=== PATIENT | female | born 1990 | race Caucasian/White ===

== ENCOUNTER 2017-01-09 01:17 | Inpatient (IN) | payer MEDICAID ==
[~2017-01-09] VITALS: Ht 180.3 cm; Wt 113.9 kg
[~2017-01-09 01:17] MED LIST: AUGMENTIN XR 101 TER PO; GABAPENTIN 400400 MG PO; METHADONE HCL5 MG PO; PHENERGAN25 M3 PO; PRENATAL PLUS1 TA1 PO; SEPTRA DS 800 M1 TAB PO; TYLENOL W/CODEI1 TA2 PO; TYLENOL325 MG PO; VOLTAREN75 M1 PO
[2017-01-09 05:59] VITALS: BP 120/75
[2017-01-09 06:30] LABS: HEMOGLOBIN 12.6 g/dL (12.2-16.2); LYMPH # 2.2 K/mm3 (0.7-4.5); LYMPH % 23.3 % (10-50.0)
[2017-01-09 07:14] LABS: ABO BLOOD TYPE O; RH BLOOD TYPE POSITIVE
[2017-01-09 07:45] LABS: URINE BLOOD NEGATIVE (NEG)
[2017-01-09 07:52] LABS: URINE BILIRUBIN - DIPSTICK NEGATIVE (NEG)
[2017-01-09 07:55] LABS: AMPHETAMINES/METAMPHETAMINES NEGATIVE ng/mL (<1000)
--- NOTE | 2017-01-09 08:29 | Operative Note ---
Procedure/Operative Record Procedure Date of procedure: 01/09/17 Pre-Op Dx: Term , previous section Post-Op Dx: Term , previous section Procedure performed: Repeat lower segment transverse section Surgeon: Dr. Lazaro Fulton Heat Treater Apprentice(s): Kamila Alcazar Anesthesia: Taye Acosta EBL (ml): 600 Clinical note: She is a 26-year-old 3 para 1 aborta 1 who was 39 and 6 weeks gestational age. She's had a previous section and as result of that was offered repeat lower segment transverse section at term. Surgery discussed the patient prior surgery. Operative findings: She delivered a live-born male child at 8:00 on the morning of January 09, 2017. The baby had Apgars of 9 at 1 minute and 10 at 5 minutes. Ovaries and tubes appeared normal. Operative note: She was taken to the operating room where epidural anesthesia was found be adequate. She was prepped and draped in normal sterile fashion in the supine position with a leftward tilt. A Bailon catheter was in the bladder. A Pfannenstiel skin incision was made with knife then carried through to the underlying layer of fascia with cautery. The fascia was opened in the midline with cautery and extended laterally using Arvizu scissors. Lauri clamps were applied to the superior aspect of the fascial incision which was tented up and the underlying rectus muscles dissected off using cautery. The [place] clamps were then applied to the inferior aspect of the fascial incision which in a similar fashion was tented up and the underlying rectus muscles dissected off using cautery. The rectus muscles were then in the midline, the peritoneum identified, and entered sharply with Metzenbaum scissors. This incision was then extended superiorly and inferiorly with cautery. We had good visualization of the bladder inferiorly. The bladder peritoneum was then opened in the midline and extended laterally using Metzenbaum scissors. A bladder flap was created digitally. The lower blade of the [place] was inserted so as to push the bladder out of the way. Transverse incision was made through the uterine muscle to the amnion. This incision was then extended laterally using fingers traction. The amnion was entered sharply with knife. The infant's head was then delivered atraumatically. This was followed by the anterior shoulder and the rest of the infant's body atraumatically. The oropharynx and nasopharynx were bulb suctioned. The was then handed off to Dr. Bentley who assigned Apgars of 9 at 1 minute and 10 at 5 minutes. We then obtained cord blood as well as cord pH. The pH was 7.36. Using gentle traction on the cord and countertraction on the fundus I was able to easily deliver the placenta intact. It had a normal three-vessel cord. The uterus was then cleared of clots and debris and exteriorized from the abdominal cavity. The uterine incision was then closed using running 0 Vicryl suture in a locked fashion. A second layer of the same suture was used to imbricate the first layer. The bladder peritoneum was then closed using running 2-0 Vicryl suture in a locked fashion. The gutters and cul-de-sac were then cleared of clots and debris and the uterus was returned the abdominal cavity. Once again hemostasis was assured. The peritoneum was grasped with Lanette clamps and closed using running 2-0 Vicryl suture. The rectus muscles were then reapproximated using running 0 Vicryl suture. The fascia was closed using running #1 Vicryl suture. The subcutaneous tissues were then irrigated with warm water followed by closure Henok's fascia using running 2-0 Monocryl suture. The skin was closed with stephanie. I then cleaned the skin with Hibiclens. Sterile dressings were applied. She tolerated the procedure well and was taken to the recovery room in excellent condition. All sponges minute and needle counts were correct. Estimate a blood loss was approximately 600 mL. Conplications: None Specimens: Products of conception at 5507
--- NOTE | 2017-01-09 08:43 | Anesthesia Record ---
Anesthesia Record Part I Total IV fluids: 2000 EBL (ml): 600 Urine Output: 50 B/P: 134/62 % SaO2: 100 Pulse: 78 Resps: 16 Temp: 97.5 Patient is: Awake, Stable Stable to PACU at: 0830 at 0843
--- NOTE | 2017-01-09 08:43 | Anesthesia Record ---
Anesthesia Record Part II Discharge time: 0900 Destination: OB PACU nurse assessment review? Yes Patient is: Awake, Stable Anesthesia complications? No at 0843
[2017-01-09 09:15] VITALS: BP 129/67
[2017-01-09 19:40] VITALS: BP 116/61
[2017-01-10 07:00] LABS: HEMOGLOBIN 10.2 g/dL (12.2-16.2)
[2017-01-10 07:49] VITALS: BP 123/66
--- NOTE | 2017-01-10 08:12 | ACUTE CARE PROGRESS NOTE (QUA) ---
Progress Notes Subjective Date 01/10/17 Time 0810 Note She is doing well this morning. She is eating and drinking and ambulating. She has decided not to breast-feed. Her lochia is normal. Her pain is reasonably well-controlled given the fact that she is addicted to narcotics. Patient/family reports: feeling better, pain Objective Findings Last VS-Temp:98.1 B/P:123/66 Pulse:72 Resp:18 SaO2:97 ROOM AIR Last weight lbs:251 oz:0 K.853 Method:Stated Laboratory Tests 01/10/17 0618: Hgb 10.2 L, Hct 31.5 L Exam General appearance: normal appearance, alert, awake, no acute distress Reviewed: vital signs, lab results Assessment/Plan Problem List 1. Delivered by section 2. Drug abuse, opioid type Patient condition Improving, Stable Plan: continue current care This inpt stay is expected to cross 2 MNs from start of care Yes Comments: She is doing better this morning. Given the fact that she stopped her rest feeding we'll go ahead and start Toradol. at 0812
--- NOTE | 2017-01-10 09:59 | PHARMACY CLINIC NOTE ---
Patient Demographics Patient Demographics Admission date: 01/09/17 Date: 01/10/17 Time: 0958 Allergies Coded Allergies: acetaminophen (From VICODIN) (I-ITCHING 01/09/17) hydrocodone (From VICODIN) (I-ITCHING 01/09/17) HEIGHT- FT: 5 IN: 11.00 K.853 VTE General Information Labs: Laboratory Tests 01/10 0618 Hematology Hgb (12.2 - 16.2 g/dL) 10.2 L Hct (37.0 - 47.0 %) 31.5 L Disclaimer The following section includes nursing documentation that has been pulled in for pharmacy review. VTE prophylaxis NQF [id number] VTE prophylaxis ordered? Yes Type of prophylaxis/treatment: ICD at 0958
[2017-01-10 19:54] VITALS: BP 123/73
--- NOTE | 2017-01-11 08:51 | ACUTE CARE PROGRESS NOTE (QUA) ---
Progress Notes Subjective Date 01/11/17 Time 0849 Note She is doing much better this morning. She is eating and drinking and ambulating. She has been started on Toradol and this seems to help much better with her pain. Patient/family reports: feeling better, no complaints Objective Findings Last VS-Temp:98.4 B/P:123/73 Pulse:79 Resp:18 SaO2:97 ROOM AIR Last weight lbs:251 oz:0 K.853 Method:Stated Exam General appearance: normal appearance, alert, awake, no acute distress Reviewed: vital signs, lab results Assessment/Plan Problem List 1. Delivered by section 2. Drug abuse, opioid type Patient condition Improving, Stable Plan: continue current care This inpt stay is expected to cross 2 MNs from start of care Yes Comments: She is doing well this morning. Her pain is much improved. We will plan to send her home tomorrow. at 0881
[2017-01-11 20:00] VITALS: BP 119/67
[2017-01-12 08:06] VITALS: BP 119/74
--- NOTE | 2017-01-12 08:12 | ACUTE CARE PROGRESS NOTE (QUA) ---
Progress Notes Subjective Date 01/12/17 Time 0811 Note She is doing very well this morning. She is eating and drinking and ambulating. She was seen by forensic social worker and it's not clear who the baby is going to go home with. Patient/family reports: feeling better, no complaints Objective Findings Last VS-Temp:97.9 B/P:119/74 Pulse:62 Resp:20 SaO2:97 ROOM AIR Last weight lbs:251 oz:0 K.853 Method:Stated Exam General appearance: normal appearance, alert, awake, no acute distress Assessment/Plan Problem List 1. Delivered by section 2. Drug abuse, opioid type Patient condition Improving, Stable Plan: continue current care, initiate discharge plan This inpt stay is expected to cross 2 MNs from start of care Yes Comments: We will plan to send her home today. at 0812
--- NOTE | 2017-01-12 08:12 | ACUTE CARE PROGRESS NOTE (QUA) ---
Progress Notes Subjective Date 01/12/17 Time 0811 Note She is doing very well this morning. She is eating and drinking and ambulating. She was seen by oncology social worker and it's not clear who the baby is going to go home with. Patient/family reports: feeling better, no complaints Objective Findings Last VS-Temp:97.9 B/P:119/74 Pulse:62 Resp:20 SaO2:97 ROOM AIR Last weight lbs:251 oz:0 K.853 Method:Stated Exam General appearance: normal appearance, alert, awake, no acute distress Assessment/Plan Problem List 1. Delivered by section 2. Drug abuse, opioid type Patient condition Improving, Stable Plan: continue current care, initiate discharge plan This inpt stay is expected to cross 2 MNs from start of care Yes Comments: We will plan to send her home today. at 0812
--- NOTE | 2017-01-12 08:14 | Discharge Summary ---
Discharge Summary Admission date: 01/09/17 Discharge date: 01/12/17 Discharge diagnoses: Term , maternal drug abuse, maternal obesity, previous section , repeat lower segment transverse section Clinical note: She is a 26-year-old 3 para 2 aborta 1 who is 39 and 6 weeks gestational age. She's had a previous section and as result of that was offered repeat lower segment transverse section at term. She has been taking methadone 90 mg daily. She is also positive for marijuana. Course in hospital: On January 09, 2017 she underwent a repeat lower segment transverse section. She delivered a live-born male child at 8:00 AM. Baby weighed 7 lbs. 13 oz. and was 19 inches long. He had Apgars of 9 at 1 minute and 10 at 5 minutes. She has done well post operatively and has remained afebrile her hospitalization. She is eating and drinking and ambulating. She is bottlefeeding. Her lochia is normal. She has O positive blood, she is rubella immune and was group B streptococcus negative. Laboratory Tests 01/10/17 0618: Hgb 10.2 L, Hct 31.5 L Plans for ongoing care: She is discharged home to follow-up with me in approximately 2 weeks' time. Discharge medications She will continue with her vitamins and iron. She was given a pressure for hydromorphone 4 mg number 30 tablets. DC/follow-up instructions She was given the usual instructions with respect to limiting her activity, driving and sexual activity. She was given instructions with respect to wound care. Condition at discharge Stable and improved at 0814
[2017-01-12] MEDS ORDERED: HYDROMORPHONE2 MG PO (08:16)
[2017-01-12] MEDS ORDERED: IRON TABLETS325 MG PO (08:17)
== END 2017-01-12 11:50 | disposition home or self-care (01) | DRG 765 ==
LOC: OB 01:17 → SDC 07:30 → EDSTATUS 07:30 → OB 07:30
PROVIDERS: Nurse Practitioner Obstetrics & Gynecology
PROC: 10D00Z1 Extraction of Products of Conception, Low, Open Approach (ICD-10-PCS; principal; 2017-01-09 07:30)
DX: O34.211 Maternal care for low transverse scar from previous cesarean delivery (principal); O99.323 Drug use complicating pregnancy, third trimester; F11.20 Opioid dependence, uncomplicated; N85.8 Other specified noninflammatory disorders of uterus; Z3A.39 39 weeks gestation of pregnancy; Z37.0 Single live birth
CPT/HCPCS: J2405

== ENCOUNTER → 2017-07-27 | Outpatient (CLI) | payer MEDICAID ==
[~2017-07-27] MED LIST changes: +HYDROMORPHONE2 MG PO; +IRON TABLETS325 MG PO
--- NOTE | 2017-07-29 08:41 | RADIOLOGY REPORT PS360 ---
US PELVIS-TRANSVAGINAL ONLY COMPARISON: Ultrasound 09/12/2016 HISTORY: Right-sided pelvic pain. No menstrual period since TECHNIQUE: Transvaginal imaging FINDINGS: The uterus upper limits of normal in size and shows homogeneous echogenicity. The small amount of fluid within the endometrial cavity. Both ovaries are imaged both showing tiny follicular cysts. There is no cul-de-sac fluid. IMPRESSION: Small amount of endometrial fluid, difficult to assess significance in view of the fact the patient has not had a menstrual period otherwise essentially unremarkable study
== END ==
LOC: RAD 13:00
DX: R10.2 Pelvic and perineal pain (principal); R10.31 Right lower quadrant pain